=== PATIENT | male | born 1950 ===

== ENCOUNTER 2017-08-15 16:02 | Outpatient (CLI) | payer MEDICARE ==
--- NOTE | 2017-08-15 19:21 | Cat Scan Report ---
FINAL REPORT EXAM: CT ANGIO CHEST HISTORY: SHORTNESS OF BREATH TECHNIQUE: CTA of chest with IV contrast. Coronal and sagittal and MIP reconstructed images provided. PRIORS: None currently available. FINDINGS: Mild aortic atherosclerotic disease. No aneurysm. No dissection. Major branch arteries are unremarkable. Main pulmonary artery is unremarkable. No pulmonary embolus. Heart size is within normal limits. No pericardial effusion. Coronary artery disease. 6.9 mm irregular solid pleural based nodule right upper lung series 2:46. 5.5 mm solid nodule right upper lobe series 2:47. 7.0 mm solid nodule right lower lobe series 2:209: 6.0 x 12.9 mm irregular lesion in the right lower lobe demonstrates a cystic area adjacent to it which measures 10.4 mm on series 2:109 4.6 mm solid nodule left lower lobe series 2:110. Severe emphysema. Minimal scarring the periphery of both lungs. No honeycombing. No pneumothorax. No distinct consolidation. No effusion. No endobronchial lesions. There is no axillary adenopathy. There is no hilar or mediastinal mass or adenopathy. Enlarged thyroid. No distinct lesions. Small hiatal hernia. Stomach is otherwise unremarkable. Partially imaged heterogeneous mass in the right kidney demonstrates heterogeneous enhancement measures 9.1 x 6.1 cm. No suspicious osseous lesions on this limited examination of the skeleton. Metastatic disease better evaluated with bone scan. Degenerative changes are present in the spine. IMPRESSION: Partially imaged mass in the right kidney. Further evaluation with renal protocol CT may be helpful. Renal cell carcinoma should be suspected until proven otherwise. Pulmonary nodules in both lungs. Irregular lesion in the left lower lobe. No pulmonary embolus. No aortic aneurysm. No dissection. Emphysema. Gary level II finding report initiated.
== END 2017-08-15 16:03 | disposition home or self-care (01) ==
LOC: CT 16:02
PROVIDERS: ATTEND Internal Medicine
DX: J43.9 Emphysema, unspecified (principal); J98.4 Other disorders of lung; M47.894 Other spondylosis, thoracic region; E04.9 Nontoxic goiter, unspecified; R91.1 Solitary pulmonary nodule
CPT/HCPCS: 71275; Q9967